=== PATIENT | male | born 1970 | race African-American/Black ===

== ENCOUNTER 2020-05-30 11:09 | Inpatient (IN) ==
[2020-05-30 12:49] LABS: Basophils % 0.4 % (0.0-0.8); Eosinophils # 0.1 10*3/uL (0.0-0.87); Eosinophils % 1.3 % (0.00-10.9); Hematocrit 35.7 VOL% (42.0-52.0); Hemoglobin 11.8 GM/DL (14.0-18.0); Immature Granulocytes % 1.7 %; Immature Granulocytes Absolute 0.12 #; Lymphocytes % 28.6 % (21.2-54.2); Mean Corpuscular HGB Conc 33.1 GM/DL (32-36); Mean Corpuscular Volume 92.2 FL (87-102); Mean Platelet Volume 9.4 FL (9.6-12.0); Monocytes % 14.6 % (1.7-12.7); Neutrophils % 53.4 % (38.7-73.9); Platelet Count 417 T/CUMM (130-400); Red Blood Count 3.87 MC/CUMM (3.8-5.5); Red Cell Distribution Width 13.2 % (9.3-17.3); White Blood Count 6.9 T/CUMM (4-12)
[2020-05-30 13:01] LABS: Albumin 3.6 G/DL (3.4-5.0); Bilirubin,Total 0.4 MG/DL (0.2-1.0); Calcium 8.8 MG/DL (8.5-10.1); Osmolality,Calculated 278.3 MOS/KG (273-304); Total Protein 7.8 G/DL (6.4-8.3)
[2020-05-30 14:15] LABS: Platelet Estimate Increased
[2020-05-30] MEDS ORDERED: PIPERACILLIN/TAZOBACTAM 3,375 MG in SODIUM CHLORIDE 0.9% 100 ML IV STA (15:37)
[2020-05-30] MEDS ORDERED: ONDANSETRON 4 MG/2 ML VIAL IV PRN (16:21)
[2020-05-30] MEDS ORDERED: ACETAMINOPHEN 325 MG TABLET PO PRN (16:21)
[2020-05-30] MEDS: DEXTROSE 5% NACL 0.45% 1,000 ML IV SCH (18:53)
[2020-05-30] MEDS: VANCOMYCIN INJ 1,750 MG in SODIUM CHLORIDE 0.9% 500 ML IV SCH (18:53)
[2020-05-31] MEDS: PIPERACILLIN/TAZOBACTAM 3,375 MG in SODIUM CHLORIDE 0.9% 100 ML IV SCH ×2 (00:28→09:29)
[2020-05-31] MEDS: VANCOMYCIN INJ 1,750 MG in SODIUM CHLORIDE 0.9% 500 ML IV SCH (05:33)
[2020-05-31] MEDS ORDERED: BUPIVACAINE MPF 0.25% 30 ML VIAL ONE (07:02)
[2020-05-31] MEDS ORDERED: LIDOCAINE 1% 20 ML VIAL ONE (07:02)
[2020-05-31] MEDS ORDERED: ceFAZolin 1,000 MG in SYRINGE 1 EACH IV ONE (07:07)
[2020-05-31] MEDS ORDERED: fentaNYL 100 MCG/2 ML VIAL ONE (07:13)
[2020-05-31] MEDS ORDERED: MIDAZOLAM 2 MG/2 ML VIAL ONE (07:13)
[2020-05-31] MEDS ORDERED: propofoL 200 MG/20 ML VIAL IV ONE (07:13)
[2020-05-31] MEDS ORDERED: LIDOCAINE 2% 5 ML VIAL ONE (07:13)
[2020-05-31] MEDS ORDERED: ONDANSETRON 4 MG/2 ML VIAL ONE ×2 (07:58)
[2020-05-31] MEDS ORDERED: PHENYLEPHRINE 10 MG/1 ML VIAL IV ONE (08:04)
[2020-05-31] MEDS ORDERED: SEVOFLURANE 1 UNIT/15 MINUTE INH ONE ×2 (08:04→08:38)
[2020-05-31] MEDS ORDERED: KETOROLAC 30 MG/1 ML VIAL ONE (08:28)
[2020-05-31] MEDS ORDERED: PANTOPRAZOLE 40 MG TABLET PO SCH (09:00)
[2020-05-31] MEDS: DEXTROSE 5% NACL 0.45% 1,000 ML IV SCH ×2 (09:30→11:35)
[2020-05-31 12:22] VITALS: BP 107/65
== END 2020-05-31 12:47 | disposition home or self-care (01) | DRG 857 ==
LOC: N.ED 11:09 → N.EDINP 16:21 → N.3E 17:08
PROVIDERS: ADMIT Student in an Organized Health Care Education/Training Program; ATTEND Student in an Organized Health Care Education/Training Program